=== PATIENT | female | born 1975 | race Two or more races ===

== ENCOUNTER 2019-12-10 21:03 | Emergency (ER) | payer MEDICAID ==
[~2019-12-10] VITALS: Ht 162.6 cm; Wt 64.4 kg
[2019-12-10 21:33] VITALS: BP 129/75
== END 2019-12-10 21:51 | disposition left against medical advice (07) ==
LOC: ER 21:12
DX: J02.9 Acute pharyngitis, unspecified (principal); Z53.21 Procedure and treatment not carried out due to patient leaving prior to being seen by health care provider